=== PATIENT | female | born 2000 | race Hispanic/Latino ===

== ENCOUNTER 2019-09-08 19:13 | Emergency (ER) | payer MEDICAID, OTHER ==
[~2019-09-08 19:13] MED LIST: PREN1TAB80 PO
[2019-09-08 19:55] LABS: RAPID GROUP A STREP NEGATIVE (NEGATIVE)
[2019-09-08] MEDS ORDERED: ACETAMINOPHEN EXTRA STRENGTH 500 MG TABLET ONE (20:44)
== END 2019-09-08 21:24 | disposition home or self-care (01) ==
LOC: EDH 19:13
DX: R51 Headache (principal); R09.81 Nasal congestion
CPT/HCPCS: 81025; 87804; 87880